=== PATIENT | female | born 1970 | race Caucasian/White ===

== ENCOUNTER → 2018-01-23 09:21 | Outpatient (CLI) | payer BC, SELFPAY ==
[2018-01-25 17:40] LABS: Adrenocorticotropic Hormone 10.6 pg/mL (7.2-63.3)
== END ==
PROVIDERS: PCP Family Medicine; Visit Provider Family Medicine
DX: E27.49 Other adrenocortical insufficiency (principal)
CPT/HCPCS: 36415; 82024; 82533

== ENCOUNTER → 2019-04-09 09:51 | Outpatient (CLI) | payer BC, SELFPAY ==
[2019-04-09 14:41] LABS: Alanine Aminotransferase 25 U/L (12-78); Albumin Level 3.7 gm/dL (3.4-5.0); Alkaline Phosphatase 123 U/L (46-116); Aspartate Amino Transferase 19 U/L (15-37); Bilirubin,Direct 0.1 mg/dL (0.0-0.2); Bilirubin,Indirect 0.3 mg/dL (0.0-0.9); Bilirubin,Total 0.4 mg/dL (0.2-1.0); Chol/HDL Ratio 3.4 (1-3.5); Cholesterol 182 mg/dL (140-200); HDL Cholesterol 53 mg/dL (29-89); LDL Cholesterol 90 mg/dL (0-130); Total Protein,Serum 6.3 gm/dL (6.4-8.2); Triglycerides 195 mg/dL (30-200); VLDL Cholesterol 39 mg/dL (0-40)
== END ==
PROVIDERS: PCP Family Medicine; Visit Provider Internal Medicine Interventional Cardiology
DX: E78.00 Pure hypercholesterolemia, unspecified (principal)
CPT/HCPCS: 36415; 80061; 80076

== ENCOUNTER → 2019-11-27 10:53 | Outpatient (CLI) | payer BC, SELFPAY ==
[2019-11-27 13:41] LABS: Basophils % 0.4 % (0.1-2.0); Eosinophils # 0.1 K/mm3 (0.0-0.4); Hematocrit 40.6 % (37.0-47.0); Hemoglobin 12.8 g/dL (12.2-16.2); Lymphocytes # 4.3 K/mm3 (0.7-4.5); Lymphocytes % 42.2 % (10-50); Mean Corpuscular HGB Conc 31.5 g/dL (31.8-35.4); Mean Corpuscular Hemoglobin 33.5 pg (27.0-31.2); Mean Corpuscular Volume 106.4 fl (81-99); Mean Platelet Volume 8.3 fl (7.4-10.4); Monocytes # 0.5 K/mm3 (0.1-1.0); Monocytes % 4.5 % (1.7-9.3); Neutrophils # 5.3 K/mm3 (1.8-7.8); Neutrophils % 51.9 % (37.0-80.0); Platelet Count 412 K/mm3 (142-424); Red Blood Count 3.82 M/mm3 (4.20-5.40); Red Cell Distribution Width 13.6 % (11.5-17.5); White Blood Count 10.3 K/mm3 (4.8-10.8)
[2019-11-27 14:15] LABS: Erythrocyte Sedimentation Rate 14 mm/hr (0-20)
[2019-11-27 14:22] LABS: Alanine Aminotransferase 31 U/L (9-52); Albumin Level 3.9 g/dL (3.4-5.0); Albumin/Globulin Ratio 1.5 (1.1-1.8); Alkaline Phosphatase 103 U/L (46-116); Anion Gap 16.5 mEq/L (5-15); Aspartate Amino Transferase 12 U/L (15-37); Bilirubin,Total 0.3 mg/dL (0.2-1.0); Blood Urea Nitrogen 22 mg/dL (7-18); Calcium 8.9 mg/dL (8.5-10.1); Carbon Dioxide 24 mmol/L (21.0-32.0); Chloride 109 mmol/L (98-107); Creatinine,Serum 0.89 mg/dL (0.55-1.02); Estimated Glomerular Filt Rate 68 ml/min (>60); GFR (African American) 82 ML/MIN (>60); Globulin 2.6 gm/dl (1.3-3.2); Glucose 78 mg/dL (74-106); Potassium 3.5 mmoL/L (3.5-5.1); Sodium 146 mmol/L (137-145); Total Protein,Serum 6.5 g/dL (6.4-8.2)
[2019-11-27 14:25] LABS: C-Reactive Protein < 0.2 mg/dL (0.0-0.9)
[2019-11-28 07:10] LABS: Immunoglobulin A, Qn 89 mg/dL (87-352); Immunoglobulin G, Qn 566 mg/dL (700-1600)
[2019-11-28 10:51] LABS: Immunoglobulin M, Qn 65 mg/dL (26-217)
== END ==
PROVIDERS: Visit Provider Internal Medicine Rheumatology
DX: M79.7 Fibromyalgia (principal); I73.00 Raynaud's syndrome without gangrene; E03.9 Hypothyroidism, unspecified; M54.5 Low back pain; M81.0 Age-related osteoporosis without current pathological fracture; I10 Essential (primary) hypertension
CPT/HCPCS: 36415; 80053; 82784; 85025; 85651; 86140

== ENCOUNTER → 2020-02-10 09:15 | Outpatient (CLI) | payer BC, SELFPAY ==
[2020-02-10 14:19] LABS: Alanine Aminotransferase 32 U/L (12-78); Alkaline Phosphatase 160 U/L (38-126); Anion Gap 15.6 mEq/L (5-15); Aspartate Amino Transferase 34 U/L (14-36); Bilirubin,Direct 0.1 mg/dl (0.0-0.4); Bilirubin,Indirect 0.2 mg/dL (0.0-0.9); Bilirubin,Total 0.3 mg/dl (0.2-1.3); Bilirubin,Unconjugated 0.2 mg/dL (0.0-1.1); Blood Urea Nitrogen 13 mg/dl (7-17); Calcium 9.7 mg/dl (8.4-10.2); Carbon Dioxide 24 mmol/L (22.0-30.0); Chloride 107 mmol/L (98-107); Chol/HDL Ratio 2.1 (1-3.5); Cholesterol 150 mg/dl (140-200); Estimated Glomerular Filt Rate 77 ml/min (>60); GFR (African American) 93 ML/MIN (>60); Glucose 78 mg/dl (74-100); HDL Cholesterol 71 mg/dl (40-60); Potassium 3.6 mmoL/L (3.5-5.1); Sodium 143 mmol/L (136-145); Total Protein,Serum 6.4 g/dl (6.3-8.2); Triglycerides 169 mg/dl (30-150); VLDL Cholesterol 34 mg/dL (0-40)
[2020-02-10 14:30] LABS: Direct LDL Cholesterol 77.84 mg/dL (100-129)
[2020-02-11 05:08] LABS: Hep A Ab, IgM Negative (Negative); Hepatitis B Core Antibody IgM Negative (Negative); Hepatitis B Surface Antigen Negative (Negative)
[2020-02-12 11:09] LABS: Metanephrine, Ur 34 ug/L (Undefined); Normetanephrine, Ur 97 ug/L (Undefined)
[2020-02-13 09:17] LABS: Hepatitis C Antibody <0.1 s/co ratio (0.0-0.9)
[2020-02-13 09:22] LABS: 5-HIAA, Urine 2.2 mg/L (Undefined); 5-HIAA, Urine, 24Hr. 1.5 mg/24 hr (0.0-14.9); Metanephrine, U,24hr 24 ug/24 hr (45-290); Normetanephr.,U,24h 68 ug/24 hr (82-500)
== END ==
PROVIDERS: Dermatology; Visit Provider Internal Medicine Interventional Cardiology
DX: E78.00 Pure hypercholesterolemia, unspecified (principal); E87.6 Hypokalemia; I10 Essential (primary) hypertension; L24.9 Irritant contact dermatitis, unspecified cause; G93.3 Postviral and related fatigue syndromes
CPT/HCPCS: 36415; 80048; 80061; 80074; 80076; 82533; 83497; 83835

== ENCOUNTER → 2021-02-28 09:37 | Outpatient (CLI) | payer BC, SELFPAY ==
[2021-02-28 17:21] LABS: Barbiturates Screen,Urine Negative ng/ml (<200)
[2021-02-28 17:22] LABS: Amphetamine/Metha Screen,Urine Negative ng/ml (<1000); Benzodiazepines Screen,Urine Negative ng/ml (<200)
[2021-02-28 17:23] LABS: Cannabinoid Screen,Urine Negative ng/ml (<50)
[2021-02-28 17:24] LABS: Cocaine Screen,Urine Negative ng/ml (<300); Methadone Screen,Urine Negative ng/ml (<300)
[2021-02-28 17:25] LABS: Opiate Screen,Urine Negative ng/ml (<300); Phencyclidine Screen,Urine Negative ng/ml (<25)
== END ==
PROVIDERS: Visit Provider Pain Medicine Interventional Pain Medicine
DX: Z79.891 Long term (current) use of opiate analgesic (principal); Z79.899 Other long term (current) drug therapy
CPT/HCPCS: 80305

== ENCOUNTER → 2021-09-07 20:48 | Outpatient (CLI) | payer BC, SELFPAY | PROVIDERS: Visit Provider Internal Medicine Adolescent Medicine | DX: R30.0 Dysuria (principal); B95.8 Unspecified staphylococcus as the cause of diseases classified elsewhere | CPT/HCPCS: 87086; 87088; 87186 ==

== ENCOUNTER → 2021-10-18 18:09 | Outpatient (CLI) | payer OTHER, SELFPAY | PROVIDERS: Visit Provider Internal Medicine Adolescent Medicine | DX: R30.0 Dysuria (principal); N30.00 Acute cystitis without hematuria; B96.20 Unspecified Escherichia coli [E. coli] as the cause of diseases classified elsewhere | CPT/HCPCS: 87086; 87088; 87186 ==